=== PATIENT | male | born 2000 | race Caucasian/White ===

== ENCOUNTER 2022-05-06 13:22 | Emergency (ER) | payer OTHER, SELFPAY ==
--- NOTE | ~2022-05-06 | XR_ITS ---
EXAMINATION: XR knee LT min 4V DATE: 05/06/2022 14:38 INDICATION: Left knee pain TECHNIQUE: Four views of the left knee were obtained. COMPARISON: None. FINDINGS: Alignment is normal. No fracture or osteochondral lesion. Joint spaces are normal with no e rosions. No joint effusion/synovitis. There is medial soft tissue swelling of the leg near the knee . IMPRESSION: 1. Soft tissue swelling without acute osseous abnormality. Reviewed, dictated and finalized at location F.
[2022-05-06 13:51] VITALS: BP 122/80; PULSE 84; RESP 18; TEMP 36.7; O2SAT 97
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
[2022-05-06] MEDS: IBUPROFEN 400 MG TABLET 800 MG PO (14:27)
== END 2022-05-06 16:15 | disposition home or self-care (01) ==
PROVIDERS: Emergency Provider General Practice
DX: S81.012A Laceration without foreign body, left knee, initial encounter (principal); S00.01XA Abrasion of scalp, initial encounter; W20.8XXA Other cause of strike by thrown, projected or falling object, initial encounter
CPT/HCPCS: 12001; 73564; 99283; A9270

== ENCOUNTER 2022-07-12 12:07 | Emergency (ER) | payer OTHER, SELFPAY ==
[2022-07-12 12:10] VITALS: BP 130/69; PULSE 108; RESP 16; TEMP 37.7; O2SAT 97
--- NOTE | 2022-07-12 12:52 | ED.URI ---
HPI - URI/Sore Throat General Chief Complaint: Fever Stated Complaint: Fever 105.0,cough,slight headache Time Seen by Provider: 07/12/22 12:22 Source: patient and RN notes reviewed Mode of arrival: ambulatory Limitations: no limitations History of Present Illness MD elicited complaint: fever and cough Onset (ago): day(s) (1) Consistency: constant Severity: moderate Description of mucous: clear Able to tolerate fluids by mouth: Yes Exacerbating factors: other ( coughing) Relieving factors: nothing Context: sick contacts ( both parents with influenza) Associated symptoms: fever, chills, headache, sore throat, cough and other ( weakness) Related Data Allergies Allergy/AdvReac Type Severity Reaction Status Date / Time Sulfa (Sulfonamide Allergy Unknown Verified 07/12/22 12:18 Antibiotics) Review of Systems Review of Systems: All systems reviewed & are unremarkable except as noted in HPI and below PMFSH Past Medical History Medical History Patient denies medical problems Surgical History Surgical History (Updated 05/06/22 @ 14:32 by Stephany Ferreira MD) No pertinent past surgical history Social History Social History (Updated 07/12/22 @ 13:10 by Jackson Moseley MD) Smoking status: Never smoker Exam Const: General: healthy appearing, no acute distress and alert Nutritional Appearance: well nourished Orientation/consciousness: patient oriented x3 Limitations: no limitations HENMT: Head: normal to inspection Ears: external ears normal Eyes: Conjunctivae: conjunctivae normal Pupils: Equal, round and reactive pupils present EOM: EOMs intact bilaterally Neck: Neck: normal visual inspection Resp: Effort & Inspection: normal respiratory effort Auscultation: clear to auscultation bilaterally Cardio: Rate: regular rate Rhythm: regular rhythm GI: GI Palp: Yes Soft to palpation and No Tenderness to palpation present (GI) Auscultation: normal bowel sounds Back/Spine/Pelvis: Cervical Spine: cervical ROM normal Thoracic/Lumbar Spine: thoraco-lumbar ROM normal Skin: General skin exam: normal color Rashes: no rashes Neuro: General: patient oriented x3, moves all extremities, no focal motor deficits and CN's II-XI intact bilaterally Speech: normal speech Gait exam (Neuro): Normal gait present Extrem: General: normal to inspection and no clubbing, cyanosis or edema Psych: Mental Status: mental status grossly normal Affect: normal affect Attitude: cooperative Course Vital Signs Vital signs: Vital Signs Temperature 37.7 C H 07/12/22 12:10 Pulse Rate 108 H 07/12/22 12:10 Respiratory Rate 16 07/12/22 12:10 Blood Pressure 130/69 07/12/22 12:10 Pulse Oximetry 97 07/12/22 12:10 Oxygen Delivery Room Air 07/12/22 12:10 Temperature 37.7 C H 07/12/22 12:10 Pulse Rate 108 H 07/12/22 12:10 Respiratory Rate 16 07/12/22 12:10 Blood Pressure 130/69 07/12/22 12:10 Pulse Oximetry 97 07/12/22 12:10 Oxygen Delivery Room Air 07/12/22 12:10 MDM - URI/Sore Throat Differential Diagnosis Differential diagnosis: Likely upper respiratory infection, viral infection, influenza and other (COVID) Lab Data Attestation: I reviewed the patient's lab results. Labs: Lab Results 07/12/22 Range/Units 12:18 Influenza A (RT-PCR) Positive (Negative) Influenza B (RT-PCR) Negative (Negative) SARS-CoV-2 RNA (RT-PCR) Negative (Negative) Discharge Plan Discharge Clinical Impression: Influenza A Patient Disposition: Home, Self-Care Condition: Stable Instructions: Influenza (ED) Additional Instructions: use Tylenol and or Motrin as needed for fever. Drink plenty of fluids get plenty of rest. Prescriptions: New oseltamivir [Tamiflu] 75 mg capsule 75 mg PO Q12H 5 Days Qty: 10 0RF Follow-up/Referrals: UNKNOWN,DOCTOR [Primary Care Provider] - Stand Alone Forms: Work/School Rel
[2022-07-12 12:56] LABS: Influenza A QL RT-PCR Positive (Negative); Influenza B QL RT-PCR Negative (Negative); SARS-CoV-2 RNA PCR Negative (Negative)
[2022-07-12 13:47] VITALS: BP 121/73; PULSE 109; RESP 18; TEMP 36.9; O2SAT 97
== END 2022-07-12 13:47 | disposition home or self-care (01) ==
PROVIDERS: Emergency Provider Emergency Medicine
DX: J10.1 Influenza due to other identified influenza virus with other respiratory manifestations (principal); Z20.822 Contact with and (suspected) exposure to COVID-19
CPT/HCPCS: 87636; 99283

== ENCOUNTER 2022-10-14 11:28 | Emergency (ER) | payer OTHER, SELFPAY ==
--- NOTE | ~2022-10-14 | XR_ITS ---
Clinical Indication: Chest pain PA and lateral views of the chest: Comparison: None Findings: The lungs are clear, without evidence of focal consolidation or pleural effusion. Cardiome diastinal silhouette is within normal limits. Bones and soft tissues are unremarkable. Impression: Normal chest. Reviewed, dictated and finalized at location . Impression: Normal chest.
--- NOTE | 2022-10-14 11:30 | ECG_ITS ---
Measurements Intervals Etters Rate: 78 P: 47 SC: 151 QRS: 28 QRSD: 92 T: 11 QT: 351 QTc: 401 Interpretive Statements SINUS RHYTHM WITH SINUS ARRHYTHMIA MINIMAL Q WAVES- DIFFUSE LEADS BASELINE ARTIFACT- I, III, AVL BORDERLINE ECG NO PREVIOUS ECG AVAILABLE FOR COMPARISON Electronically Signed On 10-14-2022 11:56:10 CDT by Jordan Fowler D.O.
[2022-10-14 11:35] VITALS: BP 130/77; PULSE 88; RESP 17; TEMP 36.6; O2SAT 97
[2022-10-14 12:00] VITALS: BP 134/71; PULSE 90; RESP 17; O2SAT 96
[2022-10-14 12:14] LABS: Basophils Absolute Auto 0.05 K/mm3 (0.00-0.10); Basophils Percent Auto 0.8 % (0.0-1.0); Eosinophils Absolute Auto 0.03 K/mm3 (0.02-0.50); Eosinophils Percent Auto 0.5 % (1.0-6.0); Hematocrit 40.7 % (40.0-54.0); Immature Granulocyte Absolute 0.02 K/mm3 (0.00-0.00); Immature Granulocyte Percent A 0.3 % (0.0-0.0); Lymphocytes Absolute Auto 1.42 K/mm3 (1.10-4.50); Lymphocytes Percent Auto 22.9 % (18.0-42.0); Mean Corpuscular HGB Conc 36.9 g/dL (32.0-36.0); Mean Corpuscular Hemoglobin 32.3 pg (27.0-31.0); Mean Corpuscular Volume 87.7 fL (78.0-102.0); Mean Platelet Volume 10.6 fl (8.7-11.0); Monocytes Absolute Auto 0.49 K/mm3 (0.10-0.90); Monocytes Percent Auto 7.9 % (2.0-11.0); Neutrophils Absolute Auto 4.2 K/mm3 (1.7-7.2); Neutrophils Percent Auto 67.6 % (50.0-70.0); Platelet Count Result 223 K/mm3 (150-420); Red Blood Count 4.64 M/mm3 (4.70-6.10); Red Cell Distribution Width 12.3 % (11.6-14.4); White Blood Count 6.2 K/mm3 (4.8-10.8)
[2022-10-14 12:30] VITALS: BP 123/53; PULSE 95; RESP 22; O2SAT 96
[2022-10-14 12:30] LABS: INR 1.1; Partial Thromboplastin Time 27.2 SEC (23.90-30.70); Prothrombin Time 11.5 Seconds (9.50-12.10)
[2022-10-14 12:35] LABS: Alanine Aminotransferase 40 U/L (16-63); Albumin Level 4.1 g/dL (3.4-5.0); Alkaline Phosphatase 95 U/L (46-116); Anion Gap 8 mmol/L (8-16); Aspartate Amino Transferase 20 U/L (15-37); Bilirubin,Total 0.8 mg/dL (0.00-1.00); Blood Urea Nitrogen 12 mg/dL (7-18); Calcium 9.1 mg/dL (8.5-10.1); Carbon Dioxide 29 mmol/L (21-32); Chloride 107 mmol/L (98-108); Estimated Glomerular Filt Rate > 60; Glucose 112 mg/dL (70-99); Lipase 11 U/L (16-77); NT Pro B Type Natriuretic Pept 29 pg/mL (0-125); Osmolality Calculated 298 mOsm/kg (285-295); Potassium 3.5 mmol/L (3.5-5.1); Sodium 144 mmol/L (136-145); Total Protein 7.4 g/dL (6.4-8.2)
[2022-10-14 13:00] VITALS: BP 125/85; PULSE 88; RESP 17; O2SAT 97
--- NOTE | 2022-10-14 13:21 | ED.CHESTPAIN ---
HPI - Chest Pain General Chief Complaint: Chest Pain Stated Complaint: chest pain Time Seen by Provider: 10/14/22 11:30 Source: patient and family Mode of arrival: ambulatory Limitations: no limitations History of Present Illness HPI narrative: this is a 22-year-old male presents with chest discomfort with no shortness of breath no nausea vomiting no radiation of his chest pain that started earlier today has since resolved no fever chills no shortness of breath no audible wheezing. complaint: chest discomfort Onset (ago): day(s) Timing of current episode: now resolved Prior episodes: Yes Onset: during rest Pain radiation: none Severity: mild Related Data Home Medications Medication Instructions Recorded Confirmed No Home Medications 10/14/22 10/14/22 Allergies Allergy/AdvReac Type Severity Reaction Status Date / Time Sulfa (Sulfonamide Allergy Unknown Verified 07/12/22 12:18 Antibiotics) Review of Systems Review of Systems: All systems reviewed & are unremarkable except as noted in HPI and below PMFSH Past Medical History Medical History Patient denies medical problems Surgical History Surgical History No pertinent past surgical history Social History Social History Smoking status: Never smoker Exam Const: General: healthy appearing Nutritional Appearance: well nourished HENMT: Head: normal to inspection Face and sinus: normal facial exam Mouth: Yes Normal oral and palatal mucosa present Eyes: Conjunctivae: conjunctivae normal Pupils: Equal, round and reactive pupils present EOM: EOMs intact bilaterally Neck: Neck: normal visual inspection Chest: Chest palpation & inspection: normal inspection of the chest Resp: Effort & Inspection: normal respiratory effort Cardio: Rate: regular rate Rhythm: regular rhythm GI: Auscultation: normal bowel sounds : General: Yes bladder normal to palpation Urinary Catheter: Urinary Catheter: patent and draining Back/Spine/Pelvis: Back: no CVA tenderness Skin: General skin exam: normal color Rashes: no rashes Neuro: General: patient oriented x3 and moves all extremities Cranial nerves: Yes Nystagmus not present Extrem: General: normal to inspection Psych: Mental Status: mental status grossly normal Affect: normal affect Attitude: cooperative Course Course Emergency Course: EKG and reviewed with patient currently not having any chest pain has since resolved since he has been in the ER. Vital Signs Vital signs: Vital Signs Temperature 36.6 C 10/14/22 11:35 Pulse Rate 88 10/14/22 11:35 Respiratory Rate 17 10/14/22 11:35 Blood Pressure 130/77 10/14/22 11:35 Pulse Oximetry 97 10/14/22 11:35 Oxygen Delivery Room Air 10/14/22 11:35 Temperature 36.6 C 10/14/22 11:35 Pulse Rate 88 10/14/22 11:35 Respiratory Rate 17 10/14/22 11:35 Blood Pressure 130/77 10/14/22 11:35 Pulse Oximetry 97 10/14/22 11:35 Oxygen Delivery Room Air 10/14/22 11:35 MDM - Chest Pain Lab Data 10/14/22 12:09 10/14/22 12:09 Labs: Lab Results 10/14/22 10/14/22 10/14/22 Range/Units 12:09 12:09 12:09 WBC 6.2 (4.8-10.8) K/mm3 RBC 4.64 L (4.70-6.10) M/mm3 Hgb 15.0 (14.0-18.0) g/dL Hct 40.7 (40.0-54.0) % MCV 87.7 (78.0-102.0) fL MCH 32.3 H (27.0-31.0) pg MCHC 36.9 H (32.0-36.0) g/dL RDW 12.3 (11.6-14.4) % Plt Count 223 (150-420) K/mm3 MPV 10.6 (8.7-11.0) fl Immature Gran % (Auto) 0.3 H (0.0-0.0) % Neut % (Auto) 67.6 (50.0-70.0) % Lymph % (Auto) 22.9 (18.0-42.0) % [place] % (Auto) 7.9 (2.0-11.0) % Eos % (Auto) 0.5 L (1.0-6.0) % Baso % (Auto) 0.8 (0.0-1.0) % Lymph # (Auto) 1.42 (1.10-4.50) K/mm3 [place] # (Auto) 0.49 (0.10-0.9
[2022-10-14 13:30] VITALS: BP 110/74; PULSE 77; RESP 20; O2SAT 97
== END 2022-10-14 13:30 | disposition home or self-care (01) ==
PROVIDERS: Emergency Provider Emergency Medicine
DX: R07.89 Other chest pain (principal)
CPT/HCPCS: 36415; 71046; 80053; 83690; 83880; 84484; 85025; 85610; 85730; 93005; 99283

== ENCOUNTER 2023-07-08 17:51 | Emergency (ER) | payer OTHER, SELFPAY ==
[2023-07-08 18:02] VITALS: BP 115/76; PULSE 84; RESP 18; TEMP 37; O2SAT 98
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
== END 2023-07-08 19:04 | disposition home or self-care (01) ==
LOC: ANHED 18:26
PROVIDERS: Emergency Provider Emergency Medicine
DX: Z04.3 Encounter for examination and observation following other accident (principal); W24.0XXA Contact with lifting devices, not elsewhere classified, initial encounter
CPT/HCPCS: 99282

== ENCOUNTER 2023-09-05 20:10 | Emergency (ER) | payer OTHER, SELFPAY ==
[2023-09-05 20:13] VITALS: BP 150/86; PULSE 100; RESP 18; TEMP 37.2; O2SAT 99
--- NOTE | 2023-09-05 20:14 | ED.GENADULT ---
HPI - General Adult General Chief complaint: Dental/Oral Stated complaint: tooth pain Time Seen by Provider: 09/05/23 20:12 History of Present Illness HPI narrative: Healthy 23yo man presents with pain to his right lower molar where wisdom tooth is impacting sideways and tooth is cracked. No fever or facial swelling. Related Data Allergies Allergy/AdvReac Type Severity Reaction Status Date / Time Sulfa (Sulfonamide Allergy Unknown Verified 07/12/22 12:18 Antibiotics) Review of Systems Review of Systems: All systems reviewed & are unremarkable except as noted in HPI and below Constitutional: Constitutional: Denies chills and Denies fever(s) ENT: Denies dysphagia Cardiovascular: Cardiovascular: Denies chest pain Respiratory: Respiratory: Denies dyspnea PMFSH Past Medical History Medical History Patient denies medical problems Surgical History Surgical History No pertinent past surgical history Social History Social History Smoking status: Never smoker Exam Const: General: healthy appearing and no acute distress Nutritional Appearance: well nourished HENMT: Head: normal to inspection Mouth: Yes moist mucous membranes Throat: posterior oropharynx normal and uvula midline Other: impacted right lower wisdom tooth laying sideways Eyes: Conjunctivae: conjunctivae normal Resp: Effort & Inspection: normal respiratory effort and not labored Cardio: Rate: regular rate Skin: General skin exam: normal color, no jaundice and no pallor Medical Decision Making [facility] Narrative Medical decision making narrative: odontalgia, impaction. analgesics and antibiotics. dental follow-up Discharge Plan Discharge Clinical Impression: Odontalgia, Impacted tooth Patient Disposition: Home, Self-Care Condition: Stable Instructions: Antibiotic Form Additional Instructions: Take the prescribed antibiotic Augmentin with food for the full duration. Take the prescribed pain medications as needed to help with your tooth pain. You may add Acetaminophen 1000 mg every 6 hours as needed. Follow-up with a dentist at the earliest opportunity. Prescriptions: New ketorolac 10 mg tablet 10 mg PO Q6H PRN (Reason: moderate to severe acute pain) 5 Days Qty: 15 0RF amoxicillin-pot clavulanate [Augmentin] 500-125 mg tablet 1 tablet PO BID 10 Days Qty: 20 0RF Follow-up/Referrals: Seymour,Akilah Azar APRN [Primary Care Provider] - Stand Alone Forms: Work/School Release IP Time of Disposition: 20:17
[2023-09-05] MEDS: KETOROLAC (*BKC) 60 MG/2 ML VIAL IM (20:23)
[2023-09-05] MEDS: oxyCODONE HCL (*CRX) 5 MG TAB IR 10 MG PO (20:24)
[2023-09-05] MEDS: AMOXICILLIN/CLAVULANATE K 875-125 MG TAB 1 TABLET PO (20:24)
[2023-09-05 21:09] VITALS: BP 136/100
== END 2023-09-05 21:10 | disposition home or self-care (01) ==
PROVIDERS: Emergency Provider Emergency Medicine; PCP Registered Nurse
DX: K01.1 Impacted teeth (principal); K08.89 Other specified disorders of teeth and supporting structures
CPT/HCPCS: 96372; 99284; A9270; J1100; J1885

== ENCOUNTER 2023-09-22 15:54 | Emergency (ER) | payer OTHER, SELFPAY ==
--- NOTE | ~2023-09-22 | CT_ITS ---
EXAMINATION: CT brain wo con INDICATION: Head injury COMPARISON: None TECHNIQUE: Standard unenhanced head CT. The dose-length product (DLP) was 681.00 mGy-cm. The mA was a djusted according to patient size. Iterative reconstruction technique was employed. FINDINGS: No intracranial hemorrhage, acute infarction, or abnormal mass lesion. The ventricles are n ormal. No abnormal mass effect or midline shift. The rossi-white matter differentiation is normal. The basal cisterns are patent. The orbits are normal. There is a polyp or mucous retention cyst of the l eft maxillary sinus. IMPRESSION: 1. No acute intracranial abnormality. Reviewed, dictated and finalized at location F. [employer]ORE [employer]OC[employer]
[2023-09-22 16:20] VITALS: BP 124/76; PULSE 76; RESP 16; TEMP 36.8; O2SAT 99
[2023-09-22 16:33] VITALS: BP 117/79; PULSE 74; RESP 14; TEMP 36.6; O2SAT 99
--- NOTE | 2023-09-22 17:17 | ED.HEATRA ---
HPI - Head Injury General Chief complaint: Head Injury Stated complaint: HEAD INJURY AT WORK Time Seen by Provider: 09/22/23 16:52 History of Present Illness HPI Narrative: 23-year-old male presents to emergency department after a head injury today. Patient states he was working on a truck when his tool slipped and he hit the back of his head against the frame of the truck. He denies loss of consciousness but does state he immediately felt disoriented, dizzy, nauseous and had 1 episode of emesis. He is not anticoagulated. States he feels mildly nauseous now but it is mostly improved. He denies seizures, neck pain, other injuries acquired. Pt took tylenol prior to arrival. Related Data Allergies Allergy/AdvReac Type Severity Reaction Status Date / Time Sulfa (Sulfonamide Allergy Unknown Verified 09/22/23 16:32 Antibiotics) Review of Systems Review of Systems: CONSTITUTIONAL: Denies fever, chills, or sweats. EYES: Denies visual changes, redness, or discharge. ENT: Denies rhinorrhea, congestion, sore throat, or otalgia. CARDIOVASCULAR: Denies chest pain, palpitations, or edema. RESPIRATORY: Denies cough or dyspnea. GASTROINTESTINAL: Denies abdominal pain, nausea, vomiting, or diarrhea. GENITOURINARY: Denies dysuria or hematuria. SKIN: Denies rash or itching. MUSCULOSKELETAL: Denies back pain, joint pain, or myalgia. NEUROLOGIC: See HPI PSYCHIATRIC: Denies anxiety or depression. PMFSH Past Medical History Medical History Patient denies medical problems Surgical History Surgical History No pertinent past surgical history Social History Social History Smoking status: Never smoker Exam Narrative: GENERAL: Well-appearing, well-nourished, and in no acute distress. HEAD: Normocephalic, atraumatic. no tenderness to skull, no ecchymosis or hematomas, no lacerations or abrasions EYES: PERRLA and EOMI. ENT: Nares clear, no rhinorrhea or epistaxis. Mucous membranes moist. bilateral TMs are rossi nonbulging, no hemotympanum NECK: no midline cervical spinous tenderness, step-offs or deformities CHEST: Clear to auscultation. No respiratory distress. HEART: Regular rate and rhythm. No murmur heard. Normal peripheral pulses. EXTREMITIES: Normal range of motion. No edema. SKIN: Warm, dry, no rash. NEURO: No focal deficits. Alert and oriented x3. Cranial nerves 2-12 intact. Strength 5/5 in BUE and BLE. Sensation intact throughout. Normal [id number]. No pronator drift. Course Vital Signs Vital signs: Vital Signs Temperature 98.3 F 09/22/23 16:20 Pulse Rate 76 09/22/23 16:20 Respiratory Rate 16 09/22/23 16:20 Blood Pressure 124/76 09/22/23 16:20 Pulse Oximetry 99 09/22/23 16:20 Temperature 97.8 F 09/22/23 16:33 Pulse Rate 74 09/22/23 16:33 Respiratory Rate 14 09/22/23 16:33 Blood Pressure 117/79 09/22/23 16:33 Pulse Oximetry 99 09/22/23 16:33 Oxygen Delivery Room Air 09/22/23 16:33 MDM - Head Injury MDM Narrative Medical decision making narrative: 23-year-old male presents to the emergency department after a head injury that occurred prior to arrival. No LOC. See HPI for further history. Vitals stable. Patient is neurovascularly intact. CT brain shows no acute intracranial abnormality. Imaging and exam discussed. Suspect concussion given symptoms. Discussed strict ED return precautions and concussion management. Will send Zofran to the pharmacy. Encouraged Tylenol ibuprofen for pain and headaches and close PCP f/u. Patient is agreeable to plan verbalized understanding. Discharged in stable condition. Discharge Plan Discharge Clinical Impression: Closed head injury Qualifiers: Encounter type: initial encounter Qualified Code(s): S09.90XA - Unspecified injury of head, ini
[2023-09-22] MEDS: ONDANSETRON HCL ODT 4 MG TABLET PO (17:27)
[2023-09-22 18:09] VITALS: BP 123/77; PULSE 76; RESP 14; TEMP 36.7; O2SAT 98
== END 2023-09-22 18:11 | disposition home or self-care (01) ==
PROVIDERS: Emergency Provider Physician Assistant; PCP Registered Nurse
DX: S06.0X0A Concussion without loss of consciousness, initial encounter (principal); W22.8XXA Striking against or struck by other objects, initial encounter
CPT/HCPCS: 70450; 99284; A9270

== ENCOUNTER 2023-12-09 23:15 | Emergency (ER) | payer OTHER, SELFPAY ==
--- NOTE | ~2023-12-09 | XR_ITS ---
EXAMINATION: [id number] DATE: 12/09/2023 23:28 INDICATION: Left lateral lower rib pain. TECHNIQUE: A frontal view of the chest and 2 views on 3 views of the left ribs were obtained. COMPARISON: Chest 2 views 10/14/2022 FINDINGS: There is no pneumonia, pleural effusion, or pneumothorax. The heart size is normal. IMPRESSION: 1. No rib fracture. Reviewed, dictated and finalized at location E. IMPRESSION: 1. No rib fracture.
--- NOTE | 2023-12-09 23:19 | ED.CHESTPAIN ---
HPI - Chest Pain General Chief Complaint: Extremity Problem,Nontraumatic Stated Complaint: L Rib Pain Time Seen by Provider: 12/09/23 23:18 Source: patient Mode of arrival: ambulatory Limitations: no limitations History of Present Illness HPI narrative: 23-year-old male with a history of anxiety/ depression, pericarditis in 2019, costochondritis presents to the ER with -- left lower chest wall pain which started acutely after he sneezed while he was in the bathtub. No direct trauma to the chest wall. Pain is worse on expiration. No radiation of the pain. -- Shortness of breath no fever or chills. No cough or sputum production. Patient is a nonsmoker. complaint: chest pain Onset (ago): hour(s) ( 1.5 hours ago) Prior episodes: No Onset: during rest Pain location: left chest Pain radiation: none Quality: aching and sharp Relieving factors: rest Exacerbating factors: inspiration Treatment prior to arrival: none Risk Factors Coronary artery disease risk factors: none Thoracic aortic dissection risk factors: none Related Data Home Medications Medication Instructions Recorded Confirmed buspirone 7.5 mg tablet 7.5 mg PO BID 12/09/23 12/09/23 sertraline 25 mg tablet 25 mg PO DAILY 12/09/23 12/09/23 Allergies Allergy/AdvReac Type Severity Reaction Status Date / Time Sulfa (Sulfonamide Allergy Unknown Verified 09/22/23 16:32 Antibiotics) Review of Systems Review of Systems: All systems reviewed & are unremarkable except as noted in HPI and below PMFSH Past Medical History Medical History Anxiety and depression Costochondritis Patient denies medical problems Pericarditis Surgical History Surgical History No pertinent past surgical history Social History Social History Smoking status: Never smoker Exam Const: General: no acute distress Nutritional Appearance: well nourished Orientation/consciousness: patient oriented x3 Limitations: no limitations HENMT: Head: normal to inspection Ears: external ears normal Face/Nose/Sinus: Normal external nose present Face and sinus: normal facial exam Mouth: Yes Normal oral and palatal mucosa present Throat: posterior oropharynx normal Eyes: Conjunctivae: conjunctivae normal Pupils: Equal, round and reactive pupils present EOM: EOMs intact bilaterally Direct Ophthalmoscopy: no photophobia Neck: Neck: normal visual inspection, no lymphadenopathy and no meningeal signs Chest: Chest palpation & inspection: normal inspection of the chest and tenderness Other: tenderness on palpation of the 9th and 10th ribs. Resp: Effort & Inspection: normal respiratory effort Auscultation: clear to auscultation bilaterally Cardio: Rate: regular rate Rhythm: regular rhythm GI: GI Palp: Yes Soft to palpation Auscultation: normal bowel sounds Other: Tenderness over the left upper quadrant of the abdomen : General: Yes no CVA tenderness Back/Spine/Pelvis: Back: no CVA tenderness Skin: General skin exam: normal color Rashes: no rashes Wounds: no wounds Other: No ecchymoses in chest wall or the left upper quadrant of the abdomen. Course Course Emergency Course: left chest wall pain-- came on after a loud sneeze. S raise does not show any fracture/ dislocation. The patient has tenderness over the left ribs 9 and 10 Ribs. patient has normal blood counts. Vital Signs Vital signs: Vital Signs Temperature 36.6 C 12/09/23 23:20 Pulse Rate 81 12/09/23 23:20 Respiratory Rate 18 12/09/23 23:20 Blood Pressure 132/79 12/09/23 23:20 Pulse Oximetry 96 12/09/23 23:20 Oxygen Delivery Room Air 12/09/23 23:20 Temperature 36.6 C 12/09/23 23:20 Pulse Rate 85 12/10/23 00:53 Respiratory Rate 18 12/10/23 00:53 Blood Pressure 128/79
[2023-12-09 23:20] VITALS: BP 132/79; PULSE 81; RESP 18; TEMP 36.6; O2SAT 96
[2023-12-09] MEDS: KETOROLAC (*BKC) 60 MG/2 ML VIAL IM (23:33)
[2023-12-09 23:46] LABS: Basophils Absolute Auto 0.07 K/mm3 (0.00-0.10); Basophils Percent Auto 0.9 % (0.0-1.0); Eosinophils Absolute Auto 0.12 K/mm3 (0.02-0.50); Eosinophils Percent Auto 1.6 % (1.0-6.0); Hematocrit 40.9 % (40.0-54.0); Hemoglobin 14.7 g/dL (14.0-18.0); Immature Granulocyte Absolute 0.02 K/mm3 (0.00-0.00); Immature Granulocyte Percent A 0.3 % (0.0-0.0); Lymphocytes Absolute Auto 2.95 K/mm3 (1.10-4.50); Lymphocytes Percent Auto 39.8 % (18.0-42.0); Mean Corpuscular HGB Conc 35.9 g/dL (32-36); Mean Corpuscular Volume 88.9 fL (78.0-102.0); Mean Platelet Volume 10.3 fl (8.7-11.0); Monocytes Absolute Auto 0.66 K/mm3 (0.10-0.90); Monocytes Percent Auto 8.9 % (2.0-11.0); Neutrophils Percent Auto 48.5 % (50.0-70.0); Platelet Count Result 237 K/mm3 (150-420); Red Cell Distribution Width 11.7 % (11.6-14.4); White Blood Count 7.4 K/mm3 (4.8-10.8)
[2023-12-10 00:53] VITALS: BP 128/79; PULSE 85; RESP 18; O2SAT 98
--- NOTE | 2023-12-10 00:53 | PC.NURSE ---
Pt resting c lights dimmed, explained to pt about wait times due to chemistry lab machine down. Pt understandable and will wait until lab results are back. Pt c/o no pain p given pain injection.
[2023-12-10 01:45] LABS: Alanine Aminotransferase 44 U/L (6-50); Albumin Level 4.4 g/dL (3.5-5.1); Alkaline Phosphatase 99 U/L (38-126); Aspartate Amino Transferase 51 U/L (17-59); Bilirubin,Total 0.8 mg/dL (0.2-1.3); Blood Urea Nitrogen 15 mg/dL (9-20); Calcium 9.1 mg/dL (8.4-10.2); Chloride 107 mmol/L (98-107); Estimated CRCL calculation 119 ml/min; Estimated Glomerular Filt Rate > 60; Glucose 107 mg/dL (65-110); Lipase 42 U/L (23-300); Osmolality Calculated 290 mOsm/kg (285-295); Potassium 3.5 mmol/L (3.4-5.0); Sodium 140 mmol/L (137-145)
[2023-12-10 02:07] VITALS: BP 109/62; PULSE 74; RESP 18; TEMP 36.6; O2SAT 98
[2023-12-10 06:46] LABS: Anion Gap 7 mmol/L (4-12)
[2023-12-10 07:25] LABS: Carbon Dioxide 26 mmol/L (22-30)
== END 2023-12-10 02:07 | disposition home or self-care (01) ==
PROVIDERS: Emergency Provider Internal Medicine Critical Care Medicine; PCP Registered Nurse
DX: S22.39XA Fracture of one rib, unspecified side, initial encounter for closed fracture (principal); R06.02 Shortness of breath; X50.0XXA Overexertion from strenuous movement or load, initial encounter; F41.8 Other specified anxiety disorders
CPT/HCPCS: 36415; 71101; 80053; 83690; 85025; 96372; 99283; J1885

== ENCOUNTER 2025-01-15 16:11 | Emergency (ER) | payer OTHER, SELFPAY ==
--- NOTE | ~2025-01-15 | XR_ITS ---
XR chest 2V Ordering provider: Donell Ruiz MD History: 24 years Male with . Syncope . Comparison: None. FINDINGS: MEDIASTINUM: The cardiac silhouette is not enlarged. LUNGS: No infiltrates, effusions or pneumothorax. OTHER: No free air under the diaphragm. IMPRESSION: No acute cardiopulmonary pathology. Reviewed, dictated and finalized at location A.
[2025-01-15 16:12] VITALS: BP 115/74; PULSE 87; RESP 16; TEMP 36.6; O2SAT 96
[2025-01-15 16:15] VITALS: O2SAT 97
--- NOTE | 2025-01-15 16:27 | ECG_ITS ---
Test Date: 2025-01-15 16:43:59 Measurements Intervals [place] Rate: 81 P: 17 DC: 127 QRS: 14 QRSD: 94 T: 14 QT: 369 QTc: 431 Interpretive Statements SINUS RHYTHM MINIMAL Q WAVES- ANTEROLAT/INF LEADS BASELINE ARTIFACT- I, II, III, AVR, AVF BORDERLINE ECG No previous ECG available for comparison Electronically Signed On 01-15-2025 16:56:24 CDT by Jordan Fowler D.O.
[2025-01-15 16:38] LABS: Basophils Absolute Auto 0.07 K/mm3 (0.00-0.10); Eosinophils Percent Auto 1.5 % (1.0-6.0); Hematocrit 42.3 % (40.0-54.0); Hemoglobin 15.1 g/dL (14.0-18.0); Immature Granulocyte Absolute 0.03 K/mm3 (0.00-0.00); Immature Granulocyte Percent A 0.4 % (0.0-0.0); Lymphocytes Absolute Auto 2.48 K/mm3 (1.10-4.50); Mean Corpuscular HGB Conc 35.7 g/dL (32-36); Mean Corpuscular Hemoglobin 31.9 pg (27.0-31.0); Mean Corpuscular Volume 89.2 fL (78.0-102.0); Mean Platelet Volume 10.4 fl (8.7-11.0); Monocytes Absolute Auto 0.44 K/mm3 (0.10-0.90); Monocytes Percent Auto 6.4 % (2.0-11.0); Neutrophils Absolute Auto 3.77 K/mm3 (1.70-7.20); Neutrophils Percent Auto 54.7 % (50.0-70.0); Platelet Count Result 225 K/mm3 (150-420); Red Blood Count 4.74 M/mm3 (4.70-6.10); Red Cell Distribution Width 11.9 % (11.6-14.4); White Blood Count 6.9 K/mm3 (4.8-10.8)
--- NOTE | 2025-01-15 16:47 | ED.SYNCOPE ---
HPI - Syncope General Chief Complaint: Syncope Stated Complaint: weakness Time Seen by Provider: 01/15/25 16:14 Source: patient and family Mode of arrival: ambulatory Limitations: no limitations History of Present Illness HPI narrative: This is a 24-year-old male, presents emergency department after a syncopal episode. His spouse with him in states she found him on the ground the grass. The patient states he was mowing the lawn than regained consciousness on the ground. He does not recall passing out. He denies chest pain, palpitations, shortness of breath, nausea, vomiting, diarrhea or bleeding of any kind. He has no other complaints at this time. Related Data Home Medications ?Medication ?Instructions ?Recorded ?Confirmed ?Last Taken ?Type buspirone 7.5 mg tablet 7.5 mg PO BID 12/09/23 12/09/23 Unknown History sertraline 25 mg tablet 25 mg PO DAILY 12/09/23 12/09/23 Unknown History Allergies Allergy/AdvReac Type Severity Reaction Status Date / Time Sulfa (Sulfonamide Allergy Unknown Verified 01/15/25 16:58 Antibiotics) Review of Systems Review of Systems: All systems reviewed & are unremarkable except as noted in HPI and below ( HPI) PMFSH Past Medical History Medical History Anxiety and depression Pericarditis Costochondritis Patient denies medical problems Surgical History Surgical History No pertinent past surgical history Social History Social History Smoking status: Never smoker Alcohol intake: never Substance use: never Exam Narrative: GENERAL: Well-developed, well-nourished, and in no acute distress. HEAD: Normocephalic, atraumatic. EYES: PERRLA and EOMI. ENT: Nares clear, no rhinorrhea or epistaxis. Mucous membranes moist. Oropharynx without tonsillar hypertrophy exudate or other lesions. CHEST: Clear to auscultation. No respiratory distress. No wheezes rales or rhonchi HEART: Regular rate and rhythm. No murmur heard. Normal peripheral pulses. ABDOMEN: Soft, nontender, nondistended, normal active bowel sounds. EXTREMITIES: Normal range of motion. No edema. SKIN: Warm, dry, no rash. NEURO: Alert and oriented x3. No focal deficit. Moving all 4 limbs spontaneously PSYCH: Normal mood and affect. Course Course Emergency Course: 17:27 - CBC unremarkable. Chemistries unremarkable Aside from a slightly elevated ALT of 81. EKG not concerning for ischemia or arrhythmia. Chest x-ray not concerning for acute cardiopulmonary process. Orthostatic vital signs demonstrate increased tachycardia with standing. I suspect dehydration as the cause of the patient's syncopal episode. IV hydration ongoing. Will discharge with recommendation for primary care follow-up and regular hydration. I discussed the findings and recommendations with the patient. Discussed return and emergency precautions including signs/symptoms of ACS, arrhythmia and respiratory distress. The patient voiced understanding and agreement with the plan. All questions answered to his satisfaction. Vital Signs Vital signs: Vital Signs Temperature 97.8 F 01/15/25 16:12 Pulse Rate 87 01/15/25 16:12 Respiratory Rate 16 01/15/25 16:12 Blood Pressure 115/74 01/15/25 16:12 Pulse Oximetry 96 01/15/25 16:12 Oxygen Delivery Room Air 01/15/25 16:12 Temperature 97.8 F 01/15/25 16:12 Pulse Rate 113 H 01/15/25 17:06 Respiratory Rate 16 01/15/25 16:12 Blood Pressure 101/71 01/15/25 17:06 Pulse Oximetry 97 01/15/25 16:15 Oxygen Delivery Room Air 01/15/25 16:15 MDM - Syncope MDM Narrative Medical decision making narrative: Plan: EKG labs, imaging, IV fluids, reassess Differential Diagnosis Differential diagnosis: Likely syncope due to orthostatic hypotension, dehydration and other ( arrhythmia, anemia, pneumonia, metabolic abnormality, other) Lab Data 01/15/25 16:33 01/15/25 16:33 Labs: Lab Results 01/15/25 01/15/25 Range/Units 16:33 16:54 WBC 6.9 (4.8-10.8) K/mm3 RBC 4.74 (4.70-6.10) M/mm3 Hgb 15.1 (14.0-18.0) g/dL Hct 42.3 (40.0-54.0) % MCV 89.2 (78.0-102.0) fL MCH 31.9 H (27.0-31.0) pg MCHC 35.7 (32-36) g/dL RDW 11.9 (11.6-14.4) % Plt Count 225 (150-420) K/mm3 MPV 10.4 (8.7-11.0) fl Immature Gran % (Auto) 0.4 H (0.0-0.0) % Neut % (Auto) 54.7 (50.0-70.0) % Lymph % (Auto) 36.0 (18.0-42.0) % [place] % (Auto) 6.4 (2.0-11.0) % Eos % (Auto) 1.5 (1.0-6.0) % Baso % (Auto) 1.0 (0.0-1.0) % Lymph # (Auto) 2.48 (1.10-4.50) K/mm3 [place] # (Auto) 0.44 (0.10-0.90) K/mm3 Eos # (Auto) 0.10 (0.02-0.50) K/mm3 Baso # (Auto) 0.07 (0.00-0.10) K/mm3 Abs Immat Gran (auto) 0.03 H (0.00-0.00) K/mm3 Absolute Neuts (auto) 3.77 (1.70-7.20) K/mm3 Absolute Nucleated RBC 0.00 (0.00-0.00) K/mm3 Nucleated RBC % 0.0 (0-0.0) % Sodium 139 (137-145) mmol/L Potassium 4.2 (3.4-5.0) mmol/L Chloride 108 H (98-107) mmol/L Carbon Dioxide 26 (22-30) mmol/L Anion Gap 5 (4-12) mmol/L BUN 19 (9-20) mg/dL Creatinine 0.78 (0.7-1.3) mg/dL Estim Creat Clear Calc 141 ml/min Estimated GFR > 60 (59 - ) Glucose 120 H (65-110) mg/dL POC Capillary Glucose 96 (65-105) mg/dl Calculated Osmolality 291 (285-295) mOsm/kg Calcium 8.8 (8.4-10.2) mg/dL Magnesium 2.1 (1.6-2.3) mg/dL Total Bilirubin 0.9 (0.2-1.3) mg/dL AST 44 (17-59) U/L ALT 81 H (6-50) U/L Alkaline Phosphatase 84 (38-126) U/L Total Protein 7.1 (6.3-8.2) g/dL Albumin 4.3 (3.5-5.1) g/dL ECG Data EKG #1: Attestation: I personally reviewed and interpreted this ECG as follows: ECG completion date: 01/15/25 ECG completion time: 16:43 Prior ECG tracings: not available for review Interpretation: sinus rhythm, rate 81, normal axis, no ST segment elevations or T-wave inversions concerning for ischemia, normal intervals with QTC of 407. Q-waves noted in V4 V5 and V6. Discharge Plan Discharge Clinical Impression: Dehydration Syncope Qualifiers: Syncope type: unspecified Qualified Code(s): R55 - Syncope and collapse Patient Disposition: Home Condition: Stable Instructions: Antibiotic Form, Syncope (ED) Additional Instructions: You were seen in the emergency department. Your labs and EKG were not concerning for liver, heart or kidney injury. Your vital signs are consistent with dehydration. I recommend IV fluids and follow-up with a primary care doctor. If you develop Chest pain, shortness of breath, palpitations, or if you have other emergent concerns for life, limb, or eyesight, return to the emergency department. Patient Language: Georgian Prescriptions: No Action sertraline 25 mg tablet 25 mg PO DAILY buspirone 7.5 mg tablet 7.5 mg PO BID Follow-up/Referrals: Todd,Darien Vicente APRN [Non-Staff] - 2 Weeks Time of Disposition: 17:29
[2025-01-15 16:50] LABS: Magnesium 2.1 mg/dL (1.6-2.3)
[2025-01-15 16:51] LABS: Alanine Aminotransferase 81 U/L (6-50); Albumin Level 4.3 g/dL (3.5-5.1); Alkaline Phosphatase 84 U/L (38-126); Anion Gap 5 mmol/L (4-12); Aspartate Amino Transferase 44 U/L (17-59); Bilirubin,Total 0.9 mg/dL (0.2-1.3); Blood Urea Nitrogen 19 mg/dL (9-20); Calcium 8.8 mg/dL (8.4-10.2); Carbon Dioxide 26 mmol/L (22-30); Chloride 108 mmol/L (98-107); Estimated CRCL calculation 141 ml/min; Estimated Glomerular Filt Rate > 60; Glucose 120 mg/dL (65-110); Osmolality Calculated 291 mOsm/kg (285-295); Potassium 4.2 mmol/L (3.4-5.0); Sodium 139 mmol/L (137-145); Total Protein 7.1 g/dL (6.3-8.2)
[2025-01-15 16:58] LABS: Glucose Point of Care 96 mg/dl (65-105)
[2025-01-15 17:05] VITALS: BP 108/71; PULSE 85
[2025-01-15 17:06] VITALS: BP 101/71; BP 113/67; PULSE 113; PULSE 95
[2025-01-15] MEDS: SODIUM CHLORIDE 0.9% IV 2,000 ML 999 ML IV CONT (17:08)
[2025-01-15 17:39] VITALS: BP 104/66; PULSE 76; RESP 20; O2SAT 98
== END 2025-01-15 17:40 | disposition home or self-care (01) ==
PROVIDERS: Emergency Provider Preventive Medicine Aerospace Medicine; PCP Registered Nurse
DX: E86.0 Dehydration (principal); R55 Syncope and collapse
CPT/HCPCS: 36415; 71046; 80053; 82948; 83735; 85025; 93005; 96360; 99283; J7030